=== PATIENT | male | born 1975 | race Caucasian/White ===

== ENCOUNTER 2018-03-11 15:34 | Emergency (ER) | payer OTHER ==
[2018-03-11 15:55] VITALS: BP 137/90; PULSE 75; TEMP 97; BMI 36.6
[2018-03-11] MEDS ORDERED: DIPHTH,PERTUSS(ACELL),TET 0.5 ML DISP.SYRIN IM ONE ×2 (15:55→16:18)
--- NOTE | 2018-03-11 15:56 | PDOC ---
Rapid Medical Evaluation Chief Complaint: Laceration Medical Evaluation: Allergies Allergy/AdvReac Type Severity Reaction Status Date / Time No Known Allergies Allergy Verified 03/11/18 15:51 Vital Signs Temp Pulse Resp BP Pulse Ox 97.0 F L 75 16 137/90 100 03/11/18 15:52 03/11/18 15:52 03/11/18 15:52 03/11/18 15:52 03/11/18 15:52 03/11/18 15:55 I have performed a brief in-person evaluation of the patient. The patient presents with a chief complaint of: laceration this afternoon Pertinent physical exam findings. NAD lungs clear bilateral left hand with bleeding laceration below thumb, able to move all fingers I have ordered the following. boostric The patient will proceed to the ED for further evaluation.
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
--- NOTE | 2018-03-11 17:51 | PDOC ---
*Physical Exam - Vital Signs Last Vital Signs Temp Pulse Resp BP Pulse Ox 97.0 F L 75 16 137/90 100 03/11/18 15:52 03/11/18 15:52 03/11/18 15:52 03/11/18 15:52 03/11/18 15:52 ED Treatment Course - Medications Given in the ED: ED Medications Discontinued Medications Generic Name Dose Route Start Last Admin Trade Name Freq PRN Reason Stop Dose Admin Diphtheria/Tetanus/Acell Pertussis 0.5 ml 03/11/18 15:55 03/11/18 16:54 Boostrix - IM 03/11/18 15:56 0.5 ml .ONCE ONE Administration *DC/Admit/Observation/Transfer Diagnosis at time of Disposition: Laceration - Discharge Dispostion Disposition: HOME Condition at time of disposition: Improved Decision to Admit order: No - Prescriptions Prescriptions: Cephalexin Monohydrate [Keflex -] 500 mg PO BID #14 capsule - Referrals Referrals: Radha Hong [Primary Care Provider] - - Patient Instructions Additional Instructions: Postoperative instructions: You had a laceration repair left thumb on 03/11/[address] González Motta of [facility]. Activity: Resume your usual activities gradually, but no heavy exertion or lifting more than 10-15 pounds for 4-6 weeks. Please keep dressing clean and dry until follow up. Eat lightly at first, but advance to your usual diet as tolerated. Pain: For pain, you may use and alternate Tylenol (acetaminophen) 1-2 pills and/ or ibuprofen 200 mg (1-3 pills) every 6 hours each as needed; this means that you can take one OR the other at 3-hour intervals. If you are prescribed a Tylenol/narcotic combination for severe pain, use it instead of plain Tylenol as needed and switch back when your pain starts decreasing. Do not take more than 4000 mg of acetaminophen in a day. Take medications as prescribed or indicated on the labeling. Follow-up: Call Dr. Motta' office at [phone] to make your postop appointment (Sunday in approximately 2 weeks after surgery as advised). Clinic is held in the Diagnostic Center on the first floor of [facility]. Call the office if you have: * increasing pain not responsive to pain medication * fever of 101F or higher * unusual or increasing bleeding or drainage from wounds * increasing redness or swelling at wound sites Also, see your primary medical doctor within 1-2 weeks. Take the Keflex twice a day for one week to prevent infection - Post Discharge Activity Forms/Work/School Notes: Back to Work Procedures - Laceration/Wound Repair Left Upper Anterior Lateral Distal Volar Hand Wound Length: to 2.5 cm Wound Explored: clean, no foreign body present Wound's Depth, Shape: superficial Irrigated w/ Saline: Yes Betadine Prep: Yes Anesthesia: 1% Lidocaine (15) Amount of Anesthetic (ccs): 15 Wound Repaired With: Sutures Suture Size/Type: 5:0 Number of Sutures: 2 Layer Closure: No Sterile Dressing Applied: Yes Splint Applied: No Sling Applied: No
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
== END 2018-03-11 18:06 | disposition home or self-care (01) ==
LOC: JERFT 15:34
PROC: 3E0234Z Introduction of Serum, Toxoid and Vaccine into Muscle, Percutaneous Approach (ICD-10-PCS; principal; 2018-03-11)
PROC: 03QF0ZZ Repair Left Hand Artery, Open Approach (ICD-10-PCS; 2018-03-11)
PROC: 0JQK0ZZ Repair Left Hand Subcutaneous Tissue and Fascia, Open Approach (ICD-10-PCS; 2018-03-11)
DX: S61.012A Laceration without foreign body of left thumb without damage to nail, initial encounter (principal); S61.412A Laceration without foreign body of left hand, initial encounter; W26.0XXA Contact with knife, initial encounter; Y93.G1 Activity, food preparation and clean up; Y92.090 Kitchen in other non-institutional residence as the place of occurrence of the external cause; Y99.8 Other external cause status
CPT/HCPCS: 12001; 90471; 90715; 99282-25

== ENCOUNTER 2018-12-31 16:22 | Emergency (ER) | payer OTHER ==
--- NOTE | 2018-12-31 16:25 | PDOC ---
Rapid Medical Evaluation Time Seen by Provider: 12/31/18 16:25 Medical Evaluation: Allergies Allergy/AdvReac Type Severity Reaction Status Date / Time No Known Allergies Allergy Verified 03/11/18 15:51 12/31/18 16:25 I have performed a brief in-person evaluation of this patient. The patient presents with a chief complaint of: abd pain ruq Pertinent physical exam findings:stable and in NAD, non-focal I have ordered the following:labs The patient will proceed to the ED for further evaluation.
[2018-12-31 16:27] VITALS: BMI 36.6
[2018-12-31 16:56] LABS: BASO % 0.7 % (0-2.0); EOS % 1.5 % (0-4.5); HEMATOCRIT 53.5 % (35.4-49); HEMOGLOBIN 17.6 GM/dL (11.7-16.9); LYMPH % 23.3 % (8-40); MCH 28.2 pg (25.7-33.7); MCHC 32.9 g/dl (32.0-35.9); MEAN CELL VOLUME 85.7 fl (80-96); MEAN PLT VOLUME 8.3 fl (7.5-11.1); MONO % 6.3 % (3.8-10.2); NEUT % 68.2 % (42.8-82.8); PLATELET COUNT 389 K/MM3 (134-434); RBC 6.24 M/mm3 (4.00-5.60); RDW 14.1 % (11.9-15.9); WHITE BLOOD COUNT 13.7 K/mm3 (4.0-10.0)
--- NOTE | 2018-12-31 17:06 | PDOC ---
History of Present Illness - General Chief Complaint: Pain Stated Complaint: ABDOMINAL PAIN Time Seen by Provider: 12/31/18 16:25 Past History - Past Medical History Allergies/Adverse Reactions: Allergies Allergy/AdvReac Type Severity Reaction Status Date / Time No Known Allergies Allergy Verified 12/31/18 16:27 Home Medications: Ambulatory Orders Cephalexin Monohydrate [Keflex -] 500 mg PO BID #14 capsule 03/11/18 COPD: No CHF: No DVT: No - Psycho Social/Smoking Cessation Hx Smoking History: Never smoked Have you smoked in the past 12 months: No Hx Alcohol Use: No Drug/Substance Use Hx: No *Physical Exam - Vital Signs Last Vital Signs Temp Pulse Resp BP Pulse Ox 98 F 74 18 138/90 99 12/31/18 16:23 12/31/18 16:23 12/31/18 16:23 12/31/18 16:23 12/31/18 16:23 ED Treatment Course - LABORATORY CBC & Chemistry Diagram: 12/31/18 16:36 12/31/18 16:36 - ADDITIONAL ORDERS Additional order review: 12/31/18 16:36 RBC 6.24 H MCV 85.7 MCHC 32.9 RDW 14.1 MPV 8.3 Neutrophils % 68.2 Lymphocytes % 23.3 Monocytes % 6.3 Eosinophils % 1.5 Basophils % 0.7
[2018-12-31] MEDS ORDERED: SODIUM CHLORIDE 0.9% 500 ML INFUS.BAG IV ONE (17:13)
[2018-12-31] MEDS ORDERED: ACETAMINOPHEN 500 MG TABLET (FP) PO ONE (17:14)
[2018-12-31 17:25] LABS: ALBUMIN 3.8 g/dl (3.4-5.0); BILIRUBIN,TOTAL 0.9 mg/dL (0.2-1); BLOOD UREA NITROGEN 14.9 mg/dL (7-18); CALCIUM 9.4 mg/dL (8.5-10.1); CREATININE 1.1 mg/dL (0.55-1.3); POTASSIUM 4.4 mmol/L (3.5-5.1); TOT PROT 7.7 g/dl (6.4-8.2)
--- NOTE | 2018-12-31 17:26 | PDOC ---
History of Present Illness - General Chief Complaint: Pain Stated Complaint: ABDOMINAL PAIN Time Seen by Provider: 12/31/18 16:25 History Source: Patient Exam Limitations: No Limitations - History of Present Illness Initial Comments: 01/02/19 06:06 HPI: 43M w/o PMH c/o 1 day of colicky nonradiating crampy RUQ abdominal pain. Pt has never had this pain before; no hx gallstones. Pain is unaffected by food or drink. Pt able to tolerated food and liquids. Denies f/c, n/v/d/constipation. Denies cp/sob. No sick contacts, no abd surgeries. Received 500 tylenol and 25 diclofenac 2 hours prior to presenting. Endorses drinking 5 beers a day, states he used to drink more. Denies PMH Denies meds PCP: needs new NKDA Past History - Past Medical History Allergies/Adverse Reactions: Allergies Allergy/AdvReac Type Severity Reaction Status Date / Time No Known Allergies Allergy Verified 12/31/18 16:27 COPD: No CHF: No DVT: No - Psycho Social/Smoking Cessation Hx Smoking History: Never smoked Have you smoked in the past 12 months: No Hx Alcohol Use: No Drug/Substance Use Hx: No Review of Systems - Review of Systems Able to Perform ROS?: Yes Comments:: 01/02/19 06:06 ROS: CONSTITUTIONAL: Denies F / C HEENT: Denies lightheadedness, dizziness. Denies sore throat, rhinorrhea. RESP: Denies SOB, cough CARD: Denies chest pain GI: Endorses abdominal pain. Denies N / V / D, bloody stool, inability to tolerate PO : Denies dysuria, frequency, testicular swelling/pain SKIN: Denies rashes NEURO: Denies numbness, tingling, weakness MSK: Denies back pain *Physical Exam - Vital Signs Last Vital Signs Temp Pulse Resp BP Pulse Ox 98 F 74 18 138/90 99 12/31/18 16:23 12/31/18 16:23 12/31/18 16:23 12/31/18 16:23 12/31/18 16:23 - Physical Exam Comments: 01/02/19 06:06 PE: GEN: Well appearing, NAD, comfortable. AAOx3 HEENT: NC/AT, EOMI, PERRLA. No facial asymmetry. Normal voice. Supple neck w/ FROM. CV: S1/S2, RRR, no m/r/g LUNG: CTAB, no wheezes, crackles, rales, rhonchi. GI: soft, ndnt, +BS, no guarding, no rebound. No masses. Neg CVAT b/l. EXTREMITIES: No obvious deformities of all extremities. SKIN: warm, dry, normal turgor PSYCH: normal mood and affect NEURO: Moving all extremities well. Ambulating w/ normal gait. ED Treatment Course - LABORATORY CBC & Chemistry Diagram: 12/31/18 16:36 12/31/18 16:36 - ADDITIONAL ORDERS Additional order review: 12/31/18 16:36 RBC 6.24 H MCV 85.7 MCHC 32.9 RDW 14.1 MPV 8.3 Neutrophils % 68.2 Lymphocytes % 23.3 Monocytes % 6.3 Eosinophils % 1.5 Basophils % 0.7 - RADIOLOGY Radiology Studies Ordered: Category Date Time Status ABDOMEN US -LIMITED [US] Stat Ultrasound 12/31/18 17:14 Ordered Medical Decision Making - Medical Decision Making 12/31/18 17:16 MDM: 43M w/ 1 day of colicky RUQ pain. no hx gallstones or similar pain. 5 beers/ day. Nontender exam DDx - likely biliary colic vs pancreatitis; unlikely PUD - RME labs: CBC, CMP, lipase - NS - Tylenol - RUQ US 12/31/18 20:07 US report reviewed - diffuse hepatic steatosis otherwise no acute biliary, renal , or pancreatic pathology Pt says tylenol helped but still aching, more right middle CT a/p 12/31/18 22:30 signed out to PM team Discharge - Discharge Information Problems reviewed: Yes Clinical Impression/Diagnosis: Fatty liver Abdominal pain Qualifiers: Abdominal location: right upper quadrant Qualified Code(s): R10.11 - Right upper quadrant pain Condition: Stable Disposition: HOME - Admission No - Follow up/Referral Referrals: [facility] [place] [Provider Group] Jesus Reese MD [Staff Physician] - - Patient Discharge Instructions Patient Printed Discharge Instructions: DI for Abdominal Pain-Adult, DI for Nonalcoholic Fatty Liver Disease Additional Instructions: You were evaluated and treated in the Emergency Department Your ultrasound and CT scans did not find any acute medical problems but did note hepatic steatosis (fatty liver). Follow up with your Primary Care Doctor within the next 3-5 days regarding this visit. We are referring you to the [facility]. They will call you to set up an appointment for primary care. Follow up with gastroenterology (GI) in the next 4-7 days regarding your symptoms. IMMEDIATELY return to the Emergency Department if you experience worsening symptoms, fevers, or vomiting. - Post Discharge Activity
[2018-12-31] MEDS ORDERED: ACETAMINOPHEN 500 MG TABLET (FP) ONE (17:44)
--- NOTE | 2018-12-31 18:35 | PDOC ---
Documentation entered by Syl Stephen SCRIBE, acting as scribe for Cecelia Rothman MD. Cecelia Rothman MD: This documentation has been prepared by the Zafar escobar Sammi, SCRIBE, under my direction and personally reviewed by me in its entirety. I confirm that the documentation accurately reflects all work, treatment, procedures, and medical decision making performed by me. Attending Attestation - Resident Resident Name: WattsFili - ED Attending Attestation I have performed the following: I have examined & evaluated the patient, The case was reviewed & discussed with the resident, I agree w/resident's findings & plan, Exceptions are as noted - HPI HPI: 12/31/18 17:19 The patient is a 43 year old male with PMH of alcohol abuse who presents for evaluation of 1 day of intermittent, cramping, right upper abdominal pain. Denies nausea or vomiting. The patient has taken tylenol prior to arrival in the ED with little relief. - Physicial Exam PE: 12/31/18 22:56 43-year-old male presented with right-sided abdominal pain Head normocephalic atraumatic Neck is supple Lungs are clear to auscultation CVS is regular rate rhythm S1-S2 Abdomen he has some mild tenderness adjacent to his umbilicus, there is no rebound Skin warm and dry Neuro no gross focal neuro deficits - Medical Decision Making 12/31/18 18:34 43-year-old male with a history of alcohol abuse in the past presents with right upper quadrant abdominal pain that he describes as intermittent and crampy 12/31/18 22:57 Labs were reviewed CAT scan the abdomen pelvis shows a fatty liver ,there is no evidence of acute appendicitis or other surgical abdominal process IMP Abdominal pain Plan DC home
--- NOTE | 2018-12-31 22:20 | PDOC ---
*Physical Exam - Vital Signs Last Vital Signs Temp Pulse Resp BP Pulse Ox 98 F 74 18 138/90 99 12/31/18 16:23 12/31/18 16:23 12/31/18 16:23 12/31/18 16:23 12/31/18 16:23 ED Treatment Course - LABORATORY CBC & Chemistry Diagram: 12/31/18 16:36 12/31/18 16:36 - ADDITIONAL ORDERS Additional order review: Laboratory Results 12/31/18 16:36 Sodium 139 Potassium 4.4 Chloride 106 Carbon Dioxide 27 Anion Gap 6 L BUN 14.9 Creatinine 1.1 Est GFR (CKD-EPI)AfAm 94.79 Est GFR (CKD-EPI)NonAf 81.78 Random Glucose 91 Calcium 9.4 Total Bilirubin 0.9 AST 25 ALT 50 Alkaline Phosphatase 106 Total Protein 7.7 Albumin 3.8 Lipase 199 12/31/18 16:36 RBC 6.24 H MCV 85.7 MCHC 32.9 RDW 14.1 MPV 8.3 Neutrophils % 68.2 Lymphocytes % 23.3 Monocytes % 6.3 Eosinophils % 1.5 Basophils % 0.7 - Medications Given in the ED: ED Medications Discontinued Medications Generic Name Dose Route Start Last Admin Trade Name Freq PRN Reason Stop Dose Admin Acetaminophen 500 mg 12/31/18 17:14 12/31/18 17:49 Tylenol - PO 12/31/18 17:15 500 mg ONCE ONE Administration Sodium Chloride 1,000 ml 12/31/18 17:13 12/31/18 17:48 Normal Saline - IV 12/31/18 17:14 1,000 ml ONCE ONE Administration Medical Decision Making - Medical Decision Making Pt signed out by Dr. Watts. RUQ US negative for acute pathology. Pending CT abd/ pelvis with IV contrast. 12/31/18 22:18 CT abd/pelvis: diffuse hepatic steatosis. No acute pathology. PT safe for D/c home with PCP and GI f/u. Strict return precautions provided with pt understanding. 12/31/18 22:56 Discharge - Discharge Information Problems reviewed: Yes Clinical Impression/Diagnosis: Fatty liver Abdominal pain Qualifiers: Abdominal location: right upper quadrant Qualified Code(s): R10.11 - Right upper quadrant pain Condition: Stable Disposition: HOME - Follow up/Referral Referrals: [facility] [place] [facility] [place] [Provider Group] Jesus Reese MD [Staff Physician] - - Patient Discharge Instructions Patient Printed Discharge Instructions: DI for Abdominal Pain-Adult, DI for Nonalcoholic Fatty Liver Disease Additional Instructions: You were evaluated and treated in the Emergency Department Your ultrasound and CT scans did not find any acute medical problems but did note hepatic steatosis (fatty liver). Follow up with your Primary Care Doctor within the next 3-5 days regarding this visit. We are referring you to the [facility]. They will call you to set up an appointment for primary care. Follow up with gastroenterology (GI) in the next 4-7 days regarding your symptoms. IMMEDIATELY return to the Emergency Department if you experience worsening symptoms, fevers, or vomiting. - Post Discharge Activity
[2019-01-01 00:02] VITALS: BP 139/91; PULSE 60; TEMP 97.7
== END 2018-12-31 23:15 | disposition home or self-care (01) ==
LOC: JER 16:22
DX: K76.0 Fatty (change of) liver, not elsewhere classified (principal); F10.10 Alcohol abuse, uncomplicated
CPT/HCPCS: 36415; 74177-TC; 76705-TC; 80053; 83690; 85025; 99284-25; Q9967

== ENCOUNTER 2020-09-28 00:42 | Emergency (ER) | payer OTHER ==
[2020-09-28 01:23] VITALS: BP 147/95; PULSE 75; TEMP 97.9; BMI 36.6
[2020-09-28] MEDS ORDERED: AMOX TR/POT CLAV 875MG/125MG TABLETS (FP) PO ONE (01:39)
[2020-09-28] MEDS ORDERED: IBUPROFEN 600 MG TABLET (FP) PO ONE ×2 (01:39→01:53)
[2020-09-28] MEDS ORDERED: AMOX TR/POT CLAV 875MG/125MG TABLETS (FP) ONE (01:52)
== END 2020-09-28 01:57 | disposition home or self-care (01) ==
LOC: JER 00:42
DX: H65.01 Acute serous otitis media, right ear (principal)
CPT/HCPCS: 99283-25